=== PATIENT | male | born 1995 | race Asian ===

== ENCOUNTER 2016-12-02 04:09 | Emergency (ER) | payer OTHER ==
[~2016-12-02] VITALS: Ht 175.3 cm; Wt 80.0 kg
[~2016-12-02 04:09] MED LIST: DAYQLIQ PO
[2016-12-02 04:15] VITALS: TEMP 36.4; O2SAT 94; Ht 175.3 cm; Wt 80.0 kg
[2016-12-02] MEDS ORDERED: XYLOCAINE 1%/SOD BICARB 20 ML VIAL INFIL ONE ×2 (04:30→06:49)
[2016-12-02] MEDS ORDERED: OPTIRAY 320 IV PRN (04:45)
[2016-12-02 05:01] LABS: BASO % 0.7 %; BASO ABS # 0.05 K/uL (0-0.2); COMPLETE YES; EOS % 1.5 %; HEMATOCRIT 42.1 % (42-52); IG% 0.1 %; LYMPH % 41.4 %; MEAN CELL VOLUME 82.5 fL (80-100); MEAN CORPUSCULAR HEMOGLOBIN 29.2 pg (25-34); MEAN CORPUSCULAR HGB CONC 35.4 g/dl (32-36); MEAN PLATELET VOLUME 8.5 fL (7.4-10.4); MONO % 6.4 %; NEUT % 49.9 %; PLATELET COUNT 270 K/uL (130-400); WHITE BLOOD COUNT 6.76 K/uL (4.8-10.8)
[2016-12-02 05:15] LABS: INR 1.1 (0.9-1.1); PROTHROMBIN TIME (PATIENT) 12.2 SECONDS (9.0-12.0)
[2016-12-02 05:18] LABS: ALT/SGPT 29 U/L (12-78); AST/SGOT 29 U/L (15-37); BLOOD UREA NITROGEN 8 mg/dl (7-18); BUN/CREATININE RATIO 9.7 (10-20); CARBON DIOXIDE 24 mmol/L (21-32); CHLORIDE 113 mmol/L (98-107); CREATININE 0.84 mg/dl (0.60-1.40); GLUCOSE 101 mg/dl (70-99); POTASSIUM 3.6 mmol/L (3.5-5.1); SODIUM 147 mmol/L (136-145)
[2016-12-02 05:19] LABS: ISTAT CREATININE 1.1 mg/dl (0.6-1.3); ISTAT IONIZED CALCIUM 1.1 mmol/l (1.12-1.32)
[2016-12-02 05:21] LABS: ALB/GLOB RATIO 1.2 (0.9-2); ALKALINE PHOSPHATASE 75 U/L (45-117)
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
--- NOTE | 2016-12-02 08:36 | DIAGNOSTIC IMAGING REPORT ---
RIGHT FIFTH FINGER RADIOGRAPHS CLINICAL HISTORY: Right fifth finger injury. COMPARISON: None FINDINGS: An overlying bandage is noted. There is a lucency within the medial base of the distal phalanx of the right fifth finger which may reflect a nondisplaced fracture. No additional fractures are identified. There is no radiopaque foreign body. IMPRESSION: Suspected acute nondisplaced fracture within the base of the distal phalanx of the right fifth finger. Electronically signed by: Henok Quintanilla M.D. 12/02/2016 8:34 AM Dictated Date/Time: 12/02/2016 8:32 AM
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
[2016-12-02 11:30] VITALS: BP 110/66; PULSE 78; O2SAT 98
== END 2016-12-02 11:31 | disposition home or self-care (01) ==
LOC: EDBD 04:09 → C.EDA 04:11
DX: S09.90XA Unspecified injury of head, initial encounter (principal); S61.216A Laceration without foreign body of right little finger without damage to nail, initial encounter; T51.0X1A Toxic effect of ethanol, accidental (unintentional), initial encounter; Y04.0XXA Assault by unarmed brawl or fight, initial encounter; F12.10 Cannabis abuse, uncomplicated; F17.210 Nicotine dependence, cigarettes, uncomplicated; F10.129 Alcohol abuse with intoxication, unspecified; Y90.7 Blood alcohol level of 200-239 mg/100 ml

== ENCOUNTER 2017-02-18 13:29 | Emergency (ER) | payer OTHER ==
[~2017-02-18] VITALS: Ht 175.3 cm; Wt 82.0 kg
[2017-02-18 13:35] VITALS: TEMP 37.4; Ht 175.3 cm; Wt 82.0 kg
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
[2017-02-18] MEDS ORDERED: SODIUM CHLORIDE 0.9% 1000ML 1,000 ML IV STA (14:41)
[2017-02-18] MEDS ORDERED: FENTANYL CITRATE INJ 50 MCG/1 ML 2 ML VIAL IV STA (14:42)
--- NOTE | 2017-02-18 14:43 | DIAGNOSTIC IMAGING REPORT ---
CHEST 2 VIEWS ROUTINE HISTORY: left chest pain COMPARISON: Chest 12/21/2013. FINDINGS: Stable punctate calcified granuloma within the left lung base. The lungs are otherwise clear. No pleural effusions. No pneumothorax. The heart is normal in size. IMPRESSION: No acute process. Electronically signed by: Karan Escobedo M.D. 02/18/2017 2:41 PM Dictated Date/Time: 02/18/2017 2:38 PM
[2017-02-18 15:02] LABS: BASO % 0.5 %; BASO ABS # 0.04 K/uL (0-0.2); COMPLETE YES; EOS % 1.5 %; IG% 0.7 %; LYMPH % 21.5 %; LYMPH ABS # 1.86 K/uL (1.2-3.4); MEAN CELL VOLUME 84.2 fL (80-100); MEAN CORPUSCULAR HEMOGLOBIN 29.3 pg (25-34); MEAN CORPUSCULAR HGB CONC 34.8 g/dl (32-36); MEAN PLATELET VOLUME 8.2 fL (7.4-10.4); MONO % 7.1 %; NEUT % 68.7 %; PLATELET COUNT 295 K/uL (130-400); RED BLOOD COUNT 4.99 M/uL (4.7-6.1); WHITE BLOOD COUNT 8.65 K/uL (4.8-10.8)
[2017-02-18 15:18] LABS: ALT/SGPT 36 U/L (12-78); AST/SGOT 23 U/L (15-37); BLOOD UREA NITROGEN 9 mg/dl (7-18); BUN/CREATININE RATIO 11.1 (10-20); CALCIUM 8.3 mg/dl (8.5-10.1); CARBON DIOXIDE 27 mmol/L (21-32); CHLORIDE 107 mmol/L (98-107); CREATININE 0.83 mg/dl (0.60-1.40); GLUCOSE 83 mg/dl (70-99); POTASSIUM 4.2 mmol/L (3.5-5.1); SODIUM 142 mmol/L (136-145)
[2017-02-18 15:22] LABS: ALB/GLOB RATIO 1.1 (0.9-2); ALKALINE PHOSPHATASE 65 U/L (45-117)
[2017-02-18] MEDS ORDERED: OPTIRAY 320 IV PRN (16:45)
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
[2017-02-18] MEDS ORDERED: KETOROLAC TROMETHAMINE 30 MG/ML VIAL IV STA (17:07)
[2017-02-18] MEDS ORDERED: CYCL10TA6 PO (17:12)
[2017-02-18 17:39] VITALS: BP 123/88; PULSE 62; O2SAT 99
== END 2017-02-18 17:42 | disposition home or self-care (01) ==
LOC: C.EDB 13:31
DX: S22.31XA Fracture of one rib, right side, initial encounter for closed fracture (principal); X58.XXXA Exposure to other specified factors, initial encounter; R07.81 Pleurodynia; I45.10 Unspecified right bundle-branch block; F17.200 Nicotine dependence, unspecified, uncomplicated

== ENCOUNTER → 2017-08-02 | Outpatient (CLI) | payer OTHER ==
[~2017-08-02] MED LIST changes: -DAYQLIQ PO; +GADAVIST IV PRN
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
== END | disposition home or self-care (01) ==
LOC: C.MRI 15:05
PROVIDERS: ATTEND Family Medicine
DX: S06.0X9A Concussion with loss of consciousness of unspecified duration, initial encounter (principal); V89.2XXA Person injured in unspecified motor-vehicle accident, traffic, initial encounter; R51 Headache